=== PATIENT | female | born 1955 | race Caucasian/White ===

== ENCOUNTER 2019-09-19 09:46 | Outpatient (CLI) | payer BC, SELFPAY ==
--- NOTE | ~2019-09-19 | MM_ITS ---
EXAMINATION: MM screening [facility] BI w lon HISTORY: Screening mammogram TECHNIQUE: Craniocaudal and mediolateral oblique 3-D tomosynthesis images were obtained and synthetic 2-D images were generated. CAD analysis was submitted and interpreted. COMPARISON: Comparison to multiple prior studies sequentially, with oldest reviewed study dated 06/16. BREAST PARENCHYMAL COMPOSITION: There are scattered areas of fibroglandular density. FINDINGS: There is no evidence of suspicious mass, calcification, or architectural distortion to sugg est malignancy in either breast. There has been no suspicious interval change. IMPRESSION: 1. No mammographic evidence of malignancy. 2. Recommend routine screening mammography in one year. BI-RADS Category 1: Negative Reviewed, dictated and finalized at location A. [facility] [employer]
== END 2019-09-19 09:47 | disposition home or self-care (01) ==
LOC: ANHIMG 09:49
PROVIDERS: PCP Family Medicine; Visit Provider Family Medicine
DX: Z12.31 Encounter for screening mammogram for malignant neoplasm of breast (principal)
CPT/HCPCS: 77063; 77067

== ENCOUNTER → 2021-02-10 12:11 | Outpatient (CLI) | payer MEDICARE, SELFPAY ==
--- NOTE | ~2021-02-10 | XR_ITS ---
EXAMINATION: XR hip LT min 3V w AP pelvis DATE: 02/10/2021 12:49 INDICATION: Left hip pain TECHNIQUE: Anteroposterior view of the pelvis and anteroposterior and frog-leg lateral views of the l eft hip were obtained. COMPARISON: None. FINDINGS: Partially visualized old healed fracture of the left femoral diaphysis with lateral plate and screw f ixation. Normal alignment at the left hip. No other fractures identified. No suspected avascular necr osis. Mild left hip osteoarthritis with small marginal osteophytes about the left femoral head. Minim al right hip osteoarthritis. Tiny metallic density along side a small heterotopic ossification near t he cephalad tip of the greater trochanter. IMPRESSION: 1. Mild left hip osteoarthritis. No acute osseous abnormality. Reviewed, dictated and finalized at location A.
== END ==
PROVIDERS: PCP Family Medicine; Visit Provider Family Medicine
DX: M25.552 Pain in left hip (principal); M16.12 Unilateral primary osteoarthritis, left hip
CPT/HCPCS: 73502

== ENCOUNTER 2021-03-16 14:46 | Outpatient (CLI) | payer MEDICARE, SELFPAY ==
--- NOTE | ~2021-03-16 | DEXA_ITS ---
Bone Density Report Name: Parvin La Age: 66 Sex: Female Ethnicity: White Date of : 1955 Indication: osteopenia; postmenopausal Referring Provider: CLARISSE BROWN Study: Bone densitometry was performed. Exam Date: March 16, 2021 Accession number: [id number] Bone Density: Region BMD T-score Z-score Classification AP Spine (L1-L4) 0.936 -1.0 0.8 Normal Femoral Neck (Left) 0.628 -2.0 -0.5 Osteopenia Total Hip (Left) 0.801 -1.2 0.1 Osteopenia Total Hip Bilateral Avg 0.862 -0.7 0.6 Normal Femoral Neck (Right) 0.732 -1.1 0.5 Osteopenia Total Hip (Right) 0.922 -0.2 1.1 Normal World Health Organization criteria for BMD impression classify patients as: Normal (T-score at or above -1.0), Osteopenia (T-score between -1.0 and -2.5), or Osteoporosis (T-score at or below -2.5). 10-year Fracture Risk(1): Major Osteoporotic Fracture 9.9% Hip Fracture 1.4% Reported Risk Factors: [place] (), Neck BMD=0.628, BMI=32.0 (1) FRAX(R) Version 3.08. Fracture probability calculated for an untreated patient. Fracture probability may be lower if the patient has received treatment. Previous Exams: Region Exam Age BMD T-score BMD Change BMD Change Date g/cm2 vs Baseline vs Previous AP Spine(L1-L4) 03/16/2021 66 0.936 -1.0 -0.136(-12.7%) 0.009(1.0%) 07/18/2017 62 0.927 -1.1 -0.145(-13.5%) -0.061(-6.1%)* 07/02/2015 60 0.987 -0.5 -0.084(-7.9%)# 0.058(6.3%)# 06/20/2013 58 0.929 -1.1 -0.143(-13.3%) -0.143(-13.3%) 03/20/2009 54 1.071 0.2 Total Hip(Left) 03/16/2021 66 0.801 -1.2 -0.008(-1.0%)# 0.012(1.5%) 07/18/2017 62 0.789 -1.3 -0.020(-2.5%)# -0.051(-6.1%)* 07/02/2015 60 0.840 -0.8 0.031(3.8%)# 0.053(6.7%)# 06/20/2013 58 0.787 -1.3 -0.022(-2.8%)# -0.022(-2.8%)# 03/20/2009 54 0.810 -1.1 Total Hip(Right) 03/16/2021 66 0.922 -0.2 -0.073(-7.3%)# -0.013(-1.4%) 07/18/2017 62 0.935 -0.1 -0.060(-6.0%)# -0.025(-2.6%) 07/02/2015 60 0.960 0.1 -0.035(-3.5%)# -0.029(-2.9%)# 06/20/2013 58 0.989 0.4 -0.006(-0.6%)# -0.006(-0.6%)# 03/20/2009 54 0.995 0.4 *Denotes significance at 95% confidence level, LSC for AP Spine = 0.022 g/cm2, LSC for Total Hip = 0.027 g/cm2 Clinical Information Provided by Patient: Has used the following medications: Vitamin D Patient maximum height was 66.5 Menopause Age: 54 No regular weight bearing exercise Drinks caffeinated beverages Onset of menses at age 13 Number of child
--- NOTE | ~2021-03-16 | MM_ITS ---
EXAMINATION: MM screening [facility] BI w lon HISTORY: Screening TECHNIQUE: Craniocaudal and mediolateral oblique 3-D tomosynthesis images were obtained and synthetic 2-D images were generated. CAD analysis was submitted and interpreted. COMPARISON: Comparison to multiple prior studies sequentially, with oldest reviewed study dated 08/2017. BREAST PARENCHYMAL COMPOSITION: There are scattered areas of fibroglandular density. FINDINGS: There is no evidence of suspicious mass, calcification, or architectural distortion to sugg est malignancy in either breast. There has been no suspicious interval change. IMPRESSION: 1. No mammographic evidence of malignancy. 2. Recommend routine screening mammography in one year. BI-RADS Category 1: Negative Reviewed, dictated and finalized at location A.
== END 2021-03-16 14:47 | disposition home or self-care (01) ==
PROVIDERS: PCP Family Medicine; Visit Provider Family Medicine
DX: Z12.31 Encounter for screening mammogram for malignant neoplasm of breast (principal); Z78.0 Asymptomatic menopausal state; M85.89 Other specified disorders of bone density and structure, multiple sites
CPT/HCPCS: 77063; 77067; 77080

== ENCOUNTER 2021-05-31 00:25 | Day surgery (SDC) | payer MEDICARE, SELFPAY ==
[2021-05-17 13:59] VITALS: BMI 32.3
--- NOTE | 2021-05-31 08:31 | WPDANESEPPF ---
Anes - Initial Pre Proc Eval Procedure: Operation Date: 05/31/21 10:00 Proposed Procedures p Colonoscopy - Quentin Alejandro MD Date/Time: 05/31/21 08:31 Surgeon: Quentin Alejandro MD Pre Op Diagnosis: positive cologuard Patient Data Age: 66 Gender: F Height: 1.68 m Weight: 91 kg Allergies Allergy/AdvReac Type Severity Reaction Status Date / Time No Known Allergies Allergy Mild Verified 05/31/21 09:03 Home Medications Medication Instructions Recorded Confirmed Type ergocalciferol (vitamin D2) 1,250 See Rx Instructions .ROUTE 02/09/21 05/18/21 Rx mcg (50,000 unit) capsule .COMPLEX #13 cap lansoprazole 30 mg capsule,delayed See Rx Instructions .ROUTE 02/09/21 05/18/21 Rx release .COMPLEX #90 cap simvastatin 20 mg tablet See Rx Instructions .ROUTE 02/09/21 05/18/21 Rx .COMPLEX #90 tablet amlodipine 5 mg PO DAILY 05/17/21 05/18/21 History loratadine [Claritin] 10 mg PO DAILY 05/17/21 05/18/21 History Patient hx anesthesia problems: none Family hx anesthesia problems: none Results Review: All pre-operative results and documents have been reviewed as part of the pre-operative evaluation. [facility] Past Medical History Medical History (Updated 05/31/21 @ 08:32 by Daniele Rubalcava MD) Essential (primary) hypertension Gastro-esophageal reflux disease without esophagitis Iron deficiency anemia, unspecified Lesion of ulnar nerve, right upper limb Medial epicondylitis Melanocytic nevi of left upper limb, including shoulder Metabolic syndrome Mixed hyperlipidemia Obesity Osteopenia Prediabetes Family History Family History Father Hypertension Malignant neoplasm of prostate Family history of lung cancer Mother Hypertension Social History Social History (Updated 05/18/21 @ 09:51 by Екатерина Hanley CMA) Smoking status: Never smoker Second hand tobacco smoke exposure: No Alcohol intake: never Substance use type: does not use Living arrangements: alone Gender identity (if verbalized by the patient): Female Spiritual care concerns: No Agree to blood products: Yes Anes - Eval Final PreProcedure Day of Procedure 05/31/21 08:31 Patient weight: obese Heart: regular rate and rhythm Lungs: clear to auscultation and normal air movement Airway: Mallampati scale class II Neurological: alert and oriented Last oral intake: >/= 8 hours ASA classification: III Emergent: no Anesthetic plan: proceed Anesthesia type and monitoring: general GIVS Results Review: All pre-operative results and documents have been reviewed as part of the pre-operative evaluation. Informed Consent: The patient's anesthetic plan and its attendant risks and benefits were discussed with the patient/family/POA. Questions were solicited and answers provided to the satisfaction of the patient/family/POA.
[2021-05-31 09:04] VITALS: BP 152/70; PULSE 92; RESP 20; TEMP 36.7; O2SAT 97; BMI 32.3
[2021-05-31] MEDS: LACTATED RINGERS 1,000 ML 150 ML IV CONT (09:10)
--- NOTE | 2021-05-31 09:38 | WPDGICN ---
Assessment and Plan Assessment and plan (1) Positive colorectal cancer screening using Cologuard test: Code(s): R19.5 - Other fecal abnormalities Status: Acute Assessment and Plan: Patient presents for screening colonoscopy because of positive Cologuard test. Further recommendations will be given after endoscopy. (2) Gastro-esophageal reflux disease without esophagitis: Code(s): K21.9 - Gastro-esophageal reflux disease without esophagitis Status: Acute Assessment and Plan: Patient has a stable history of acid reflux while taking PPI therapy. Continued anti-reflux measures encouraged. GI Consult Note Consult date/time: 05/31/21 09:38 HPI: Parvin La is a 66 year old female Presents for screening colonoscopy. Patient recently found to have a positive Cologuard test. Patient reports that her weight appetite bowel movements are normal. She denies abdominal pain. She has had no bleeding. Patient's last colonoscopy was 10 years ago. Patient does have a stable history of acid reflux. Remains controlled if she takes PPI therapy. She reports prompt recurrence of symptoms if she holds this medication. Review of Systems Review of Systems: All systems reviewed & are unremarkable except as noted in HPI and below PMFSH Past Medical History Medical History (Updated 05/31/21 @ 09:40 by Quentin Alejandro MD) Essential (primary) hypertension Gastro-esophageal reflux disease without esophagitis Iron deficiency anemia, unspecified Lesion of ulnar nerve, right upper limb Medial epicondylitis Melanocytic nevi of left upper limb, including shoulder Metabolic syndrome Mixed hyperlipidemia Obesity Osteopenia Prediabetes Family History Family History Father Hypertension Malignant neoplasm of prostate Family history of lung cancer Mother Hypertension Social History Social History (Updated 05/18/21 @ 09:51 by Екатерина Hanley CMA) Smoking status: Never smoker Second hand tobacco smoke exposure: No Alcohol intake: never Substance use type: does not use Living arrangements: alone Gender identity (if verbalized by the patient): Female Spiritual care concerns: No Agree to blood products: Yes Meds Home Medications and Allergies Home Medications Medication Instructions Recorded Confirmed Type ergocalciferol (vitamin D2) 1,250 See Rx Instructions .ROUTE 02/09/21 05/18/21 Rx mcg (50,000 unit) capsule .COMPLEX #13 cap lansoprazole 30 mg capsule,delayed See Rx Instructions .ROUTE 02/09/21 05/18/21 Rx release .COMPLEX #90 cap simvastatin 20 mg tablet See Rx Instructions .ROUTE 02/09/21 05/18/21 Rx .COMPLEX #90 tablet amlodipine 5 mg PO DAILY 05/17/21 05/18/21 History loratadine [Claritin] 10 mg PO DAILY 05/17/21 05/18/21 History Allergies Allergy/AdvReac Type Severity Reaction Status Date / Time No Known Allergies Allergy Mild Verified 05/31/21 09:03 Vital Signs Vital Signs - 24 hr 05/31/21 09:04 Temperature 98.0 F Pulse Rate 92 Respiratory Rate 20 Blood Pressure 152/70 H Pulse Oximetry 97 Exam Narrative: Physical exam reveals patient be alert. Vital signs stable. HEENT exam is unremarkable. Patient is anicteric. Lungs are clear to auscultation and percussion. Heart is without murmur or extra sounds. Abdominal exam bowel sounds are present soft nontender with no organomegaly. Digital external rectal exam is normal.
[2021-05-31 10:01] VITALS: BP 140/75; PULSE 81; RESP 19; O2SAT 97
[2021-05-31 10:11] VITALS: BP 143/88; PULSE 80; RESP 20; O2SAT 96
[2021-05-31 10:21] VITALS: BP 148/85; PULSE 80; RESP 20; O2SAT 99
== END 2021-05-31 10:41 | disposition home or self-care (01) ==
PROVIDERS: PCP Family Medicine; Visit Provider Internal Medicine Gastroenterology
PROC: 0DJD8ZZ Inspection of Lower Intestinal Tract, Via Natural or Artificial Opening Endoscopic (ICD-10-PCS; CPT 45378; principal; 2021-05-31 10:00)
DX: R19.5 Other fecal abnormalities (principal); D12.5 Benign neoplasm of sigmoid colon; K64.8 Other hemorrhoids; K21.9 Gastro-esophageal reflux disease without esophagitis; I10 Essential (primary) hypertension; D50.9 Iron deficiency anemia, unspecified; E78.2 Mixed hyperlipidemia; R73.03 Prediabetes; M85.80 Other specified disorders of bone density and structure, unspecified site; E66.9 Obesity, unspecified; Z68.32 Body mass index [BMI] 32.0-32.9, adult
CPT/HCPCS: 45378; 88305; J2704; J7120

== ENCOUNTER 2023-01-30 09:43 | Outpatient (CLI) | payer MEDICARE, SELFPAY ==
--- NOTE | ~2023-01-30 | MM_ITS ---
EXAMINATION: MM screening [facility] BI w lon HISTORY: Screening TECHNIQUE: Craniocaudal and mediolateral oblique 3-D tomosynthesis images were obtained and synthetic 2-D images were generated. CAD analysis was submitted and interpreted. COMPARISON: Comparison to multiple prior studies sequentially, with oldest reviewed study dated 08/2017. BREAST PARENCHYMAL COMPOSITION: There are scattered areas of fibroglandular density. FINDINGS: There is no evidence of suspicious mass, calcification, or architectural distortion to sugg est malignancy in either breast. There has been no suspicious interval change. IMPRESSION: 1. No mammographic evidence of malignancy. 2. Recommend routine screening mammography in one year. BI-RADS Category 1: Negative Reviewed, dictated and finalized at location A.
== END 2023-01-30 09:44 | disposition home or self-care (01) ==
LOC: ANHIMG 09:46
PROVIDERS: PCP Family Medicine; Visit Provider Physician Assistant
DX: Z12.31 Encounter for screening mammogram for malignant neoplasm of breast (principal)
CPT/HCPCS: 77063; 77067

== ENCOUNTER 2023-07-03 10:26 | Outpatient (CLI) | payer MEDICARE, SELFPAY ==
--- NOTE | 2023-07-07 13:11 | WPDHOLTEREM ---
Holter/Event Monitor Holter/Event Monitor Date of procedure: 07/03/23 Holter/Event Procedure: 24 Hr Holter Monitor Indications: Palpitations Conclusion: 1. 24 hour holter monitor on 07/03/23. 2. Predominant rhythm is sinus rhythm. HR range 60-129 bpm; average HR 85 bpm. 3. There are 1,432 premature supraventricular complexes, 6 supraventricular couplets, 6 supraventricular trigeminy. There are 7 episodes of atrial tachycardia, fastest at 197 bpm and longest lasting 9 beats. 4. There are 15 premature ventricular complexes. No ventricular tachycardia. 5. No sinoatrial or atrioventricular blocks. No significant pauses greater than 2 seconds. 6. Patient reports symptoms of palpitations and rapid heartbeat which demonstrate sinus rhythm, HR range 88-101 bpm.
== END 2023-07-03 10:27 | disposition home or self-care (01) ==
LOC: ANHCARD 10:29
PROVIDERS: PCP Family Medicine; Visit Provider Physician Assistant
DX: R00.2 Palpitations (principal)
CPT/HCPCS: 93225; 93226

== ENCOUNTER 2023-07-03 15:55 | Emergency (ER) | payer MEDICARE, SELFPAY ==
[2023-07-03 16:09] VITALS: BP 180/67; PULSE 112; RESP 16; TEMP 37.9; O2SAT 100
--- NOTE | 2023-07-03 16:27 | ED.SKABFB ---
HPI - Skin/Abscess/Foreign Bdy General Chief complaint: Skin/Abscess/Foreign Body Stated complaint: Insect Bite Time Seen by Provider: 07/03/23 16:27 Source: patient Mode of arrival: ambulatory Limitations: no limitations History of Present Illness HPI narrative: 68-year-old female presents with insect bite to left upper arm for 3 days. Patient denies that she was bit by a spider with helping a friend clean out a storage unit. States when she went to bed that night she noticed a red bump to left axilla area. States when she woke up the next morning she had pain and redness and warmth. Getting progressively worse over the next 2 days. Patient did not note that she had fever prior to arrival. All systems reviewed and negative except as noted above Related Data Home Medications Medication Instructions Recorded Confirmed loratadine 10 mg tablet (Claritin) 10 mg PO DAILY 05/17/21 07/03/23 Allergies Allergy/AdvReac Type Severity Reaction Status Date / Time No Known Allergies Allergy Mild Verified 07/03/23 16:03 Review of Systems Review of Systems: CONSTITUTIONAL: Denies fever, chills, or sweats. EYES: Denies visual changes, redness, or discharge. ENT: Denies rhinorrhea, congestion, sore throat, or otalgia. CARDIOVASCULAR: Denies chest pain, palpitations, or edema. RESPIRATORY: Denies cough or dyspnea. GASTROINTESTINAL: Denies abdominal pain, nausea, vomiting, or diarrhea. GENITOURINARY: Denies dysuria or hematuria. SKIN: Denies rash or itching. reports redness, swelling, warmth to left upper arm. MUSCULOSKELETAL: Denies back pain, joint pain, or myalgia. NEUROLOGIC: Denies headache, numbness, or weakness. PSYCHIATRIC: Denies anxiety or depression. All other systems reviewed are negative, except as documented in HPI. [facility] Past Medical History Medical History Essential (primary) hypertension Gastro-esophageal reflux disease without esophagitis Iron deficiency anemia, unspecified Lesion of ulnar nerve, right upper limb Medial epicondylitis Melanocytic nevi of left upper limb, including shoulder Metabolic syndrome Mixed hyperlipidemia Obesity Osteopenia Positive colorectal cancer screening using Cologuard test Prediabetes Family History Family History Father Hypertension Malignant neoplasm of prostate Family history of lung cancer Mother Hypertension Social History Social History Smoking status: Never smoker Second hand tobacco smoke exposure: No Alcohol intake: never Substance use type: does not use Lack of Transportation: No Lack of Food: Never True Current Housing: I Have Housing Concerned About Future Housing: No Difficulty Paying Gas/Electric Bills: No Difficulty Paying for Meds: No Currently Unemployed: No Education: High School Diploma/GED Difficulty w/ Childcare or Family Care: No Living arrangements: with family Occupation/Education: retired Gender identity (if verbalized by the patient): Female Spiritual care concerns: No Agree to blood products: Yes Comments At time of signature, agree with nursing past medical, surgical, social and family history. There is no relevant family history pertinent to the presenting complaint. Exam Narrative: GENERAL: This is a well-nourished, well-developed patient, in no apparent distress. HEAD: normocephalic, atraumatic. EYES: PERRL. Sclera clear/white. Vision is grossly intact. EARS: External ears normal NOSE: External nose normal NECK: Neck supple, non-tender without lymphadenopathy, masses or thyromegaly. CARDIOVASCULAR: Regular rate and rhythm without murmurs, gallops, or rubs. RESPIRATORY: Clear to auscultation. Breath sounds equal bilaterally. No wheezes, rales, or rhonchi. SKIN: warm, Dry, intact , good texture and turgor. Dusky
== END 2023-07-03 16:48 | disposition home or self-care (01) ==
PROVIDERS: Emergency Provider Nurse Practitioner Family; PCP Family Medicine
DX: S40.862A Insect bite (nonvenomous) of left upper arm, initial encounter (principal); I10 Essential (primary) hypertension; E78.2 Mixed hyperlipidemia; Z79.899 Other long term (current) drug therapy; W57.XXXA Bitten or stung by nonvenomous insect and other nonvenomous arthropods, initial encounter
CPT/HCPCS: 99213; G0463

== ENCOUNTER 2024-02-02 09:20 | Outpatient (CLI) | payer MEDICARE, SELFPAY ==
--- NOTE | ~2024-02-02 | MM_ITS ---
EXAMINATION: MM screening [facility] BI w lon HISTORY: Screening TECHNIQUE: Craniocaudal and mediolateral oblique 3-D tomosynthesis images were obtained and synthetic 2-D images were generated. CAD analysis was submitted and interpreted. COMPARISON: Comparison to multiple prior studies sequentially, with oldest reviewed study dated 08/2017. BREAST PARENCHYMAL COMPOSITION: Not dense: There are scattered areas of fibroglandular density. FINDINGS: There is no evidence of suspicious mass, calcification, or architectural distortion to sugg est malignancy in either breast. There has been no suspicious interval change. IMPRESSION: 1. No mammographic evidence of malignancy. 2. Recommend routine screening mammography in one year. BI-RADS Category 1: Negative Reviewed, dictated and finalized at location B.
== END 2024-02-02 09:21 | disposition home or self-care (01) ==
PROVIDERS: PCP Family Medicine; Visit Provider Family Medicine
DX: Z12.31 Encounter for screening mammogram for malignant neoplasm of breast (principal)
CPT/HCPCS: 77063; 77067

== ENCOUNTER 2024-10-31 00:59 | Day surgery (SDC) | payer MEDICARE, SELFPAY ==
[2024-10-22 14:54] VITALS: BMI 32.3
[2024-10-31 09:13] VITALS: BP 135/65; PULSE 85; RESP 18; TEMP 36.6; O2SAT 99
--- NOTE | 2024-10-31 09:14 | P.PNAN_ITS ---
Anes - Initial Pre Proc Eval Procedure: Operation Date: 10/31/24 10:30 Proposed Procedures p Colonoscopy - Codey Robbins MD Date/Time: 10/31/24 09:14 Surgeon: Codey Robbins MD Pre Op Diagnosis: personal hx of colon polyps Patient Data Age: 69 Gender: F Height: 1.68 m Weight: 90.8 kg Allergies Allergy/AdvReac Type Severity Reaction Status Date / Time No Known Allergies Allergy Mild Verified 10/31/24 09:11 Home Medications ?Medication ?Instructions ?Recorded ?Confirmed ?Type loratadine 10 mg tablet (Claritin) 10 mg PO DAILY 05/17/21 10/31/24 History ergocalciferol (vitamin D2) 1,250 See Rx Instructions .Route 02/29/24 10/31/24 Rx mcg (50,000 unit) capsule (Vitamin .COMPLEX #15 caps D2) benazepril 10 mg tablet 10 mg PO DAILY #100 tabs 07/05/24 10/31/24 Rx amlodipine 10 mg tablet See Rx Instructions .Route 08/26/24 10/31/24 Rx .COMPLEX #100 tabs lansoprazole 30 mg capsule,delayed See Rx Instructions .Route 08/26/24 10/31/24 Rx release .COMPLEX #100 caps simvastatin 40 mg tablet 40 mg PO DAILY #100 tabs 08/26/24 10/31/24 Rx omega 0-pqb-ack-fish oil 1,000 mg 1 cap PO DAILY 10/22/24 10/31/24 History (120 mg-180 mg) capsule (Fish Oil) Patient hx anesthesia problems: none Family hx anesthesia problems: none Results Review: All pre-operative results and documents have been reviewed as part of the pre- operative evaluation. [facility] Past Medical History Medical History Positive colorectal cancer screening using Cologuard test Obesity Iron deficiency anemia, unspecified Lesion of ulnar nerve, right upper limb Medial epicondylitis Melanocytic nevi of left upper limb, including shoulder Osteopenia Prediabetes Essential (primary) hypertension Gastro-esophageal reflux disease without esophagitis Metabolic syndrome Mixed hyperlipidemia Family History Family History Father Hypertension Malignant neoplasm of prostate Family history of lung cancer Mother Hypertension Social History Social History Social History: Caffeine-daily Smoking status: Never smoker Second hand tobacco smoke exposure: No Alcohol intake: never Alcohol use details: rarely Substance use: never Substance use type: does not use Do You Feel Safe in your Home?: Yes Lack of Transportation: No Lack of Food: Never True Current Housing: I Have Housing Concerned About Future Housing: No Difficulty Paying Gas/Electric Bills: No Difficulty Paying for Meds: No Currently Unemployed: No Education: High School Diploma/GED Difficulty w/ Childcare or Family Care: No Living arrangements: with family Occupation/Education: retired Gender identity (if verbalized by the patient): Female Spiritual care concerns: No Agree to blood products: Yes Anes - Eval Final PreProcedure Day of Procedure 10/31/24 09:14 Patient weight: obese Heart: regular rate and rhythm Lungs: clear to auscultation Airway: Mallampati scale class II Neurological: alert and oriented Last oral intake: >/= 8 hours ASA classification: III Emergent: no Anesthetic plan: proceed Anesthesia type and monitoring: general GIVS and standard monitoring Results Review: All pre-operative results and documents have been reviewed as part of the pre- operative evaluation. Informed Consent: The patient's anesthetic plan and its attendant risks and benefits were discussed with the patient/family/POA. Questions were solicited and answers provided to the satisfaction of the patient/family/POA.
[2024-10-31] MEDS: LACTATED RINGERS 1,000 ML 150 ML IV CONT (09:21)
--- NOTE | 2024-10-31 09:44 | PM.IMHP ---
H&P: HPI History of Present Illness Date/Time: 10/31/24 09:44 Chief Complaint: History of colon polyps Narrative: The patient has a history of colonic polyps, the last colonoscopy was 5 years ago. Review of Systems Review of Systems: All systems reviewed & are unremarkable except as noted in HPI and below PMFSH Past Medical History Medical History Positive colorectal cancer screening using Cologuard test Obesity Iron deficiency anemia, unspecified Lesion of ulnar nerve, right upper limb Medial epicondylitis Melanocytic nevi of left upper limb, including shoulder Osteopenia Prediabetes Essential (primary) hypertension Gastro-esophageal reflux disease without esophagitis Metabolic syndrome Mixed hyperlipidemia Family History Family History Father Hypertension Malignant neoplasm of prostate Family history of lung cancer Mother Hypertension Social History Social History Social History: Caffeine-daily Smoking status: Never smoker Second hand tobacco smoke exposure: No Alcohol intake: never Alcohol use details: rarely Substance use: never Substance use type: does not use Do You Feel Safe in your Home?: Yes Lack of Transportation: No Lack of Food: Never True Current Housing: I Have Housing Concerned About Future Housing: No Difficulty Paying Gas/Electric Bills: No Difficulty Paying for Meds: No Currently Unemployed: No Education: High School Diploma/GED Difficulty w/ Childcare or Family Care: No Living arrangements: with family Occupation/Education: retired Gender identity (if verbalized by the patient): Female Spiritual care concerns: No Agree to blood products: Yes Meds Home Medications and Allergies Home Medications ?Medication ?Instructions ?Recorded ?Confirmed ?Type loratadine 10 mg tablet (Claritin) 10 mg PO DAILY 05/17/21 10/31/24 History ergocalciferol (vitamin D2) 1,250 See Rx Instructions .Route 02/29/24 10/31/24 Rx mcg (50,000 unit) capsule (Vitamin .COMPLEX #15 caps D2) benazepril 10 mg tablet 10 mg PO DAILY #100 tabs 07/05/24 10/31/24 Rx amlodipine 10 mg tablet See Rx Instructions .Route 08/26/24 10/31/24 Rx .COMPLEX #100 tabs lansoprazole 30 mg capsule,delayed See Rx Instructions .Route 08/26/24 10/31/24 Rx release .COMPLEX #100 caps simvastatin 40 mg tablet 40 mg PO DAILY #100 tabs 08/26/24 10/31/24 Rx omega 3-wqz-ure-fish oil 1,000 mg 1 cap PO DAILY 10/22/24 10/31/24 History (120 mg-180 mg) capsule (Fish Oil) Allergies Allergy/AdvReac Type Severity Reaction Status Date / Time No Known Allergies Allergy Mild Verified 10/31/24 09:11 Vital Signs Vital Signs - 24 hr 10/31/24 09:13 Temperature 97.8 F Pulse Rate 85 Respiratory Rate 18 Blood Pressure 135/65 Pulse Oximetry 99 Oxygen Delivery Room Air Exam Const: General: cooperative and healthy appearing Resp: Effort & Inspection: normal respiratory effort and able to speak in complete sentences Auscultation: clear to auscultation bilaterally Cardio: Rate: regular rate Rhythm: regular rhythm GI: Inspection: normal to inspection GI Palp: No No hepatosplenomegaly present Auscultation: normal bowel sounds Rectal Exam: deferred Skin: General skin exam: normal color Psych: Appearance: grossly normal Mental Status: mental status grossly normal Assessment and Plan Assessment and plan (1) Colon polyp: Qualifiers: Colon polyp type: unspecified Colon location: sigmoid Qualified Code(s): K63.5 - Polyp of colon Code(s): K63.5 - Polyp of colon Status: Acute Assessment and Plan: The patient is deemed a good candidate for the procedure. Consent signed. Will proceed.
[2024-10-31 10:03] VITALS: BP 139/82; PULSE 83; RESP 25; O2SAT 96
[2024-10-31 10:13] VITALS: BP 136/74; PULSE 73; RESP 24; O2SAT 99
[2024-10-31 10:23] VITALS: BP 137/74; PULSE 75; RESP 20; O2SAT 100
== END 2024-10-31 10:33 | disposition home or self-care (01) ==
PROVIDERS: PCP Family Medicine; Referring Provider Internal Medicine Gastroenterology; Visit Provider Internal Medicine Gastroenterology
PROC: 0DJD8ZZ Inspection of Lower Intestinal Tract, Via Natural or Artificial Opening Endoscopic (ICD-10-PCS; CPT 45378; principal; 2024-10-31 10:30)
DX: Z12.11 Encounter for screening for malignant neoplasm of colon (principal); D12.3 Benign neoplasm of transverse colon; K57.30 Diverticulosis of large intestine without perforation or abscess without bleeding; D17.5 Benign lipomatous neoplasm of intra-abdominal organs; I10 Essential (primary) hypertension; K21.9 Gastro-esophageal reflux disease without esophagitis; E78.2 Mixed hyperlipidemia; D50.9 Iron deficiency anemia, unspecified; E88.810 Metabolic syndrome; M85.88 Other specified disorders of bone density and structure, other site; E66.9 Obesity, unspecified; Z68.32 Body mass index [BMI] 32.0-32.9, adult; Z80.42 Family history of malignant neoplasm of prostate; Z80.1 Family history of malignant neoplasm of trachea, bronchus and lung
CPT/HCPCS: 45385; 88305; J2704; J7120

== ENCOUNTER 2025-05-13 08:09 | Outpatient (CLI) | payer MEDICARE, SELFPAY ==
--- NOTE | ~2025-05-13 | MM_ITS ---
EXAMINATION: MM screening [facility] BI w lon HISTORY: Screening TECHNIQUE: Craniocaudal and mediolateral oblique 3-D tomosynthesis images were obtained and synthetic 2-D images were generated. CAD analysis was submitted and interpreted. COMPARISON: Comparison to multiple prior studies sequentially, with oldest reviewed study dated 08/07/2018. BREAST PARENCHYMAL COMPOSITION: Not dense: There are scattered areas of fibroglandular density. FINDINGS: There is no evidence of suspicious mass, calcification, or architectural distortion to suggest malignancy in either breast. There has been no suspicious interval change. IMPRESSION: 1. No mammographic evidence of malignancy. 2. Recommend routine screening mammography in one year. BI-RADS Category 1: Negative Reviewed, dictated and finalized at location B.
== END 2025-05-13 08:10 | disposition home or self-care (01) ==
LOC: ANHFOHIMG 08:12
PROVIDERS: PCP Family Medicine; Visit Provider Family Medicine
DX: Z12.31 Encounter for screening mammogram for malignant neoplasm of breast (principal)
CPT/HCPCS: 77063; 77067

== ENCOUNTER 2025-06-17 08:52 | Outpatient (CLI) | payer MEDICARE, SELFPAY ==
--- NOTE | ~2025-06-17 | DEXA_ITS ---
Bone Density Report Name: KATT CODY Age: 70 Sex: Female Ethnicity: White Date of : 1955 Indication: osteopenia; Referring Provider: CLARISSE BROWN Study: Bone densitometry was performed. Exam Date: June 17, 2025 Accession number: [id number] Bone Density: Region BMD T-score Z-score Classification AP Spine(L1-L4) 0.871 -1.6 0.5 Osteopenia Femoral Neck (Left) 0.642 -1.9 -0.1 Osteopenia Total Hip (Left) 0.644 -2.4 -1.0 Osteopenia Femoral Neck (Right) 0.736 -1.0 0.7 Normal Total Hip (Right) 0.857 -0.7 0.8 Normal Total Hip Mean 0.751 -1.6 -0.1 Osteopenia World Health Organization criteria for BMD impression classify patients as: Normal (T-score at or above -1.0), Osteopenia (T-score between -1.0 and -2.5), or Osteoporosis (T-score at or below -2.5). 10-year Fracture Risk(1): Major Osteoporotic Fracture 10% Hip Fracture 1.7% Reported Risk Factors: [place] (), Neck BMD=0.642, BMI=32.3 (1) FRAX(R) Version 3.08. Fracture probability calculated for an untreated patient. Fracture probability may be lower if the patient has received treatment. Previous Exams: -- Region Exam Age BMD T-score BMD Change BMD Change Date g/cm2 vs Baseline vs Previous -- AP Spine (L1-L4) 06/17/2025 70 0.871 -1.6 -6.9%# -6.9%# 03/16/2021 66 0.936 -1.0 Total Hip(Left) 06/17/2025 70 0.644 -2.4 -19.7%* -19.7%* 03/16/2021 66 0.801 -1.2 Total Hip(Right) 06/17/2025 70 0.857 -0.7 -7.0%* -7.0%* 03/16/2021 66 0.922 -0.2 -- *Denotes significance at 95% confidence level, LSC for AP Spine = 0.022 g/cm2, LSC for Total Hip = 0.027 g/cm2 # Denotes dissimilar scan types or analysis methods Clinical Information Provided by Patient: Has used the following medications: Vitamin D Patient maximum height was 67 Menopause Age: 54 No regular weight bearing exercise Does not regularly consume dairy products Drinks caffeinated beverages Onset of menses at age 13 Number of children 2 Impression: The patient has low bone mass, based on the Left Total Hip T-score. The patient has an estimated ten-year risk of hip fracture of 1.7% and an estimated ten-year risk of major fracture of 10%, based on the WHO FRAX algorithm. The BMD for the Total Hip(Left) decreased, changing by -19.7% since the last DXA exam. The BMD for the Total Hip(Right) decreased, changing by -7.0% since the last DXA exam. Discussion: BONE DENSITY IS LOW AT ONE OR MORE SKELETAL SITES. This patient's lowest T-score is low at one or more skeletal sites. It meets the World Health Organization's (WHO) criteria for ?low bone mass? (T-score between -1.0 and -2.5). The patient's 10-year risk of fracture as calculated by FRAX is less than the threshold where pharmacological therapy is recommended by the National Osteoporosis Foundation (NOF). However, all treatment decisions require clinical judgment and consideration of individual patient factors, including patient preferences, comorbidities, previous drug use, risk factors not captured in the FRAX model (e.g., frailty, falls, vitamin D deficiency, increased bone turnover, interval significant decline in bone density) and possible under or overestimation of fracture risk by FRAX. The patient should follow a healthful lifestyle (good nutrition with adequate calcium and vitamin D, and appropriate weight-bearing exercise). Follow-Up: Consider repeating this study in 2 years to reassess this patient's status, or sooner if there is some new clinical indication. Reported by: NUSRAT on 06/17/2025 1:24:00 PM. Reviewed, dictated and finalized at location A.
== END 2025-06-17 08:53 | disposition home or self-care (01) ==
LOC: MICIMG 08:53
PROVIDERS: PCP Family Medicine; Visit Provider Family Medicine
DX: Z78.0 Asymptomatic menopausal state (principal); Z13.820 Encounter for screening for osteoporosis; M85.88 Other specified disorders of bone density and structure, other site; M85.852 Other specified disorders of bone density and structure, left thigh; M85.851 Other specified disorders of bone density and structure, right thigh
CPT/HCPCS: 77080